=== PATIENT | female | born 1950 | race Caucasian/White ===

== ENCOUNTER 2020-03-18 22:44 | Emergency (ER) | payer MEDICARE ==
[2020-03-18] MEDS ORDERED: Ibuprofen 200 MG TAB ONE (23:05)
[2020-03-18] MEDS ORDERED: Ondansetron PF 4 MG/2 ML Vial ONE (23:30)
[2020-03-18 23:33] LABS: %Basophils 0.6 % (0.0-1.0); %Eosinophils 0.1 % (0.0-10.0); %Lymphocytes 3.4 % (21.0-51.0); %Monocytes 2.4 % (0.0-10.0); %Neutrophils 93.6 % (42.0-75.0); Hemoglobin 14.6 g/dL (12.0-16.0); Mean Corpuscular HGB CONC 32.4 g/dL (32.0-36.0); Mean Corpuscular Hemoglobin 30.5 pg (27.0-31.0); Mean Platelet Volume 8.3 fL (7.4-10.4); Platelet Count 210 thou/uL (130-400); RBC Distribution Width 12.3 % (11.5-14.5); Red Blood Cell (RBC) Count 4.79 mill/uL (4.20-5.40)
[2020-03-18 23:34] LABS: #Basophils 0.1 thou/uL (0.0-0.2); #Lymphocytes 0.5 thou/uL (1.20-3.40); #Monocytes 0.4 thou/uL (0.11-0.59); #Neutrophils 14.9 thou/uL (1.40-6.50)
[2020-03-18 23:39] LABS: Bilirubin Negative (Negative); Blood, Urine Moderate (Negative); Clarity Clear (Clear); Glucose, Urine (Dipstick) Negative (Negative); Ketone, Urine Negative (Negative); Leukocyte Negative (Negative); Nitrite Negative (Negative); Protein, Urine (Dipstick) Trace mg/dL (Neg-Trace); pH, Urine 8.5 (5.0-9.0)
[2020-03-18 23:45] LABS: Bacteria/HPF 1+ HPF (None Seen); Renal Epithelial 0-3 HPF (None Seen); Squamous Epithelial 0-3 HPF (0-3); WBC/HPF 0-3 HPF (0-3)
[2020-03-18 23:48] LABS: Anion Gap 15 mmol/L (10-20); BUN (Urea Nitrogen) 18 mg/dL (9.8-20.1); Calc. Creatinine Clearance 0 mL/min (70-130); Carbon Dioxide 26 mmol/L (23-31); Chloride 104 mmol/L (98-107); Potassium 3.8 mmol/L (3.5-5.1); Sodium 141 mmol/L (136-145)
[2020-03-18 23:49] LABS: ALT (SGPT) 22 U/L (8-55); AST (SGOT) 23 U/L (5-34); Alkaline Phosphatase 59 U/L (40-110); Bilirubin, Total 1.1 mg/dL (0.2-1.2); Calcium 8.9 mg/dL (7.8-10.44); Globulin 3.1 g/dL (2.4-3.5); Glucose 107 mg/dL (80-115); Lipase 5 U/L (8-78); Protein, Total 7.1 g/dL (5.8-8.1)
[2020-03-19] MEDS ORDERED: Aspirin Chewable 81 MG TAB ONE (00:39)
--- NOTE | 2020-03-19 07:44 | RAD ---
PORTABLE CHEST: DATE: 05/08/2019. FINDINGS: An AP portable film at 1140 shows a normal-sized heart and clear lungs. There is no current sign of pneumonia. No effusions were seen. The mediastinum appears normal. IMPRESSION: No acute thoracic finding. POS: HOME
[2020-03-19 18:24] LABS: SARS-CoV-2 MS2 Positive; SARS-CoV-2 N Gene Negative; SARS-CoV-2 S Gene Negative; SARS-CoV-2 by NAA Not Detected (NotDetected); SARS-CoV-2 orf1ab Negative
== END 2020-03-19 08:16 | disposition home or self-care (01) ==
LOC: BURERS 22:44
DX: R19.7 Diarrhea, unspecified (principal); R11.2 Nausea with vomiting, unspecified; Z20.828 Contact with and (suspected) exposure to other viral communicable diseases
CPT/HCPCS: 71045; 80053; 81003; 81015; 83605; 83690; 84484; 85025; 87635; 87804; 93005; 96374; J2405; U0003

== ENCOUNTER 2022-11-24 23:03 | Emergency (ER) | payer MEDICARE, OTHER | END 2022-11-24 23:43 | disposition home or self-care (01) | LOC: BURERS 23:03 | DX: K64.4 Residual hemorrhoidal skin tags (principal); I10 Essential (primary) hypertension; K58.9 Irritable bowel syndrome, unspecified | CPT/HCPCS: 99283 ==

== ENCOUNTER 2023-08-09 14:23 | Emergency (ER) | payer MEDICARE ==
[2023-08-09 15:04] LABS: #Basophils 0.1 thou/uL (0.0-0.2); #Eosinphils 0.1 thou/uL (0.0-0.7); #Lymphocytes 1.7 thou/uL (1.20-3.40); #Monocytes 0.5 thou/uL (0.11-0.59); #Neutrophils 7.5 thou/uL (1.40-6.50); %Basophils 0.6 % (0.0-1.0); %Eosinophils 0.6 % (0.0-10.0); %Monocytes 4.8 % (0.0-10.0); Hematocrit 37.7 % (36.0-47.0); Hemoglobin 12.2 g/dL (12.0-16.0); Mean Corpuscular HGB CONC 32.4 g/dL (32.0-36.0); Mean Corpuscular Volume 89.4 fl (78.0-98.0); Mean Platelet Volume 7.5 fL (7.4-10.4); Platelet Count 296 10x3/uL (130-400); RBC Distribution Width 11.6 % (11.5-14.5); Red Blood Cell (RBC) Count 4.21 mill/uL (4.20-5.40); White Blood Cell (WBC) Count 9.8 10x3/uL (4.8-10.8)
[2023-08-09 15:20] LABS: Anion Gap 14 mmol/L (10-20); BUN (Urea Nitrogen) 18 mg/dL (9.8-20.1); Calc. Creatinine Clearance 0 mL/min (70-130); Calcium 8.9 mg/dL (7.8-10.44); Carbon Dioxide 24 mmol/L (23-31); Chloride 109 mmol/L (98-107); Estimated GFR 66; Glucose 97 mg/dL (83-110); Magnesium 1.9 mg/dL (1.6-2.6); Potassium 3.1 mmol/L (3.5-5.1); Sodium 144 mmol/L (136-145)
[2023-08-09] MEDS ORDERED: Potassium Bicarbonate/Cit Ac 20 MEQ TAB ONE (16:04)
[2023-08-09] MEDS ORDERED: Ondansetron ODT 4 MG TAB ONE (17:35)
== END 2023-08-09 20:13 | disposition home or self-care (01) ==
LOC: BURERS 14:23
DX: J15.9 Unspecified bacterial pneumonia (principal); F43.20 Adjustment disorder, unspecified
CPT/HCPCS: 36415; 80048; 83735; 85025; 99284; Q0162